=== PATIENT | male | born 1950 | race Caucasian/White ===

== ENCOUNTER 2016-10-01 17:24 | Inpatient (IN) ==
[2016-10-01] MEDS ORDERED: IOPAMIDOL 100 ML BOTTLE IV ONE ×2 (17:25)
--- NOTE | 2016-10-01 17:42 | Emergency Department Note ---
General Adult HPI - General Chief complaint: Recheck/Abnormal Lab/Rx Stated complaint: High white count Time Seen by Provider: 10/01/16 17:34 Source: patient Mode of arrival: wheelchair - History of Present Illness HPI Narrative: This patient has had rectal pain and swelling for the last few days since last Saturday. The [facility] today after waking up with increased pain and swelling and coughing and him then having the drainage of blood and pus. He is exam of the [facility] with anoscopy and pus was visible. Surgeon has been consulted and is requesting a CT scan and admission. The patient has already gotten Unasyn and Flagyl. Onset (ago): day(s) - Related Data Home Medications Medication Instructions Recorded Confirmed Amoxicillin/Potassium Clav 875 mg PO Q12H 10/01/16 10/01/16 [Augmentin] Docusate Sodium [Colace] 100 mg PO PRN PRN 10/01/16 10/01/16 Ibuprofen [Ibuprofen Ib] 600 mg PO Q4HP PRN 10/01/16 10/01/16 Tamsulosin [Flomax] 0.4 mg PO ONCE 10/01/16 10/01/16 metroNIDAZOLE [Metronidazole] 500 mg PO QIDP 10/01/16 10/01/16 traMADol [Ultram] 50 mg PO Q4 PRN 10/01/16 10/01/16 Allergies Allergy/AdvReac Type Severity Reaction Status Date / Time No Known Drug Allergies Allergy Unverified 10/01/16 17:30 Review of Systems Constitutional: Denies: fever, chills Eyes: Denies: eye pain ENT ED: Denies: ear pain Cardiovascular: Denies: chest pain Respiratory: Denies: cough Gastrointestinal: Denies: abdominal pain, nausea Genitourinary: Denies: urgency Musculoskeletal: Denies: back pain Integumentary: Denies: rash Neurological: Denies: headache Past Medical History - Past Medical History Medical history: Reports: hyperlipidemia Surgical history ED: Reports: appendectomy Physical Exam - General Limitations: no limitations General appearance: alert, in no apparent distress - Head Head exam: atraumatic - Eye Eye exam: Present: normal appearance - ENT ENT exam: normal exam - Neck Neck exam: Present: normal inspection - Chest Chest inspection: Present: normal inspection - Respiratory Respiratory exam: Present: normal lung sounds bilaterally - Cardiovascular Cardiovascular exam: Present: regular rate, normal rhythm, normal heart sounds - Abdominal Exam Abdominal exam: Present: soft. Absent: distention, tenderness - Neurological Exam Neurological exam: Present: alert - Psychiatric Psychiatric exam: Present: normal affect - Skin Skin exam: Present: warm, dry Course Vital Signs Temperature 98.6 F 10/01/16 17:25 Pulse Rate 95 H 10/01/16 17:25 Respiratory Rate 20 10/01/16 17:25 Blood Pressure 106/71 10/01/16 17:25 Pulse Oximetry (%) 95 10/01/16 17:25 Temperature 98.6 F 10/01/16 17:25 Pulse Rate 87 10/01/16 18:31 Respiratory Rate 20 10/01/16 17:25 Blood Pressure 117/83 10/01/16 18:31 Pulse Oximetry (%) 96 10/01/16 18:31 Medical Decision Making - MDM Narrative Medical decision making narrative: CT scan did not show a drainable abscess but did show inflammation around the anal area. Discussed the case with Dr. Miller the general surgeon and the patient will be admitted to the hospital on IV Zosyn - Lab Data Lab results reviewed: Yes I reviewed the patient's lab results. Result diagrams: 10/01/16 18:00 10/01/16 18:00 Lab Results 10/01/16 10/01/16 10/01/16 Range/Units 18:00 18:00 18:32 WBC 14.1 H (4.5-11.0) K/mcL RBC 4.17 L (4.50-5.90) M/mcL Hgb 13.5 (13.5-16.5) g/dL Hct 39.8 L (41.0-55.0) % MCV 95.6 (80.0-100.0) fL MCH 32.4 (26.0-34.0) pg MCHC 33.8 (31.0-36.0) g/dL RDW 12.9 (11.5-14.5) % Plt Count 299 (140-440) K/mcL MPV 7.9 (7.4-10.4) fL Gran % 77.9 (38.0-78.0) % Lymph % (Auto) 11.4 L (15.5-49.0) % [place] % (Auto) 9.8 (1.0-12.0) % Eos % (Auto) 0.6 (0.0-7.0) % Baso % (Auto) 0.3 (0.0-2.0) % Gran # 11.0 H (1.8-8.0) K/mcL Lymph # 1.6 (1.5-4.8) K/mcL [place] # 1.4 H (0.1-0.9) K/mcL Eos # 0.1 (0.0-0.7) K/mcL Baso # 0 (0.0-0.3) K/mcL VBG Lactic Acid 0.9 (0.5-2.2) mmol/L Sodium 137 (133-145) mmol/L Potassium 4.6 (3.3-5.1) mmol/L Chloride 98 (96-108) mmol/L Carbon Dioxide 24 (22-30) mmol/L Anion Gap 15.0 (8-16) BUN 22 (8-23) mg/dl Creatinine 1.3 H (0.7-1.2) mg/dl GFR Calculation 56 Glucose 127 H (70-105) mg/dL Calcium 9.0 (8.6-10.4) mg/dl Total Bilirubin 0.2 (0.0-1.0) mg/dL AST 19 (0-37) U/l ALT 14 (0-40) U/l Alkaline Phosphatase 79 (39-117) U/L Total Protein 7.0 (5.9-8.4) gm/dL Albumin 3.3 (3.2-5.2) gm/dL Globulin 3.7 (2.2-3.7) gm/dL Albumin/Globulin Ratio 0.9 L (1.0-2.3) - Radiology Data Radiology results reviewed: Yes I reviewed the patient's radiology results. Disposition Clinical Impression: Alice-rectal abscess Disposition: Xfer As Inpt ([facility]) Condition: Good Referrals: Isis Hyde ARNP [Primary Care Provider] - Time of Disposition: 19:16
[2016-10-01 18:30] LABS: Basophils # (Auto) 0 K/mcL (0.0-0.3); Basophils % (Auto) 0.3 % (0.0-2.0); Eosinophils # (Auto) 0.1 K/mcL (0.0-0.7); Eosinophils % (Auto) 0.6 % (0.0-7.0); Granulocytes % (Auto) 77.9 % (38.0-78.0); Lymphocytes # (Auto) 1.6 K/mcL (1.5-4.8); Lymphocytes % (Auto) 11.4 % (15.5-49.0); Mean Cell Volume 95.6 fL (80.0-100.0); Mean Corpuscular HGB Conc 33.8 g/dL (31.0-36.0); Mean Corpuscular Hemoglobin 32.4 pg (26.0-34.0); Monocytes # (Auto) 1.4 K/mcL (0.1-0.9); Monocytes % (Auto) 9.8 % (1.0-12.0); Platelet Count 299 K/mcL (140-440); RBC 4.17 M/mcL (4.50-5.90); Red Cell Distribution Width 12.9 % (11.5-14.5)
[2016-10-01 18:51] LABS: ALT/SGPT 14 U/l (0-40); Albumin 3.3 gm/dL (3.2-5.2); Albumin/Globulin Ratio 0.9 (1.0-2.3); Alkaline Phosphatase 79 U/L (39-117); Blood Urea Nitrogen 22 mg/dl (8-23)
[2016-10-01] MEDS ORDERED: ONDANSETRON 4 MG/2 ML VIAL IV PRN (19:16)
[2016-10-01] MEDS: PIPERACILLIN SODIUM/TAZOBACTAM 3.375 GM in DEXTROSE 5% IN WATER 50 ML IV SCH (19:49)
[2016-10-01] MEDS: 0.9 % SODIUM CHLORIDE 1,000 ML IV SCH (20:22)
[2016-10-02] MEDS: 0.9 % SODIUM CHLORIDE 1,000 ML IV SCH ×3 (03:05→17:54)
[2016-10-02] MEDS: PIPERACILLIN SODIUM/TAZOBACTAM 3.375 GM in DEXTROSE 5% IN WATER 50 ML IV SCH ×4 (03:08→22:35)
[2016-10-02] MEDS ORDERED: PIPERACILLIN SODIUM/TAZOBACTAM 3.375 GM VIAL IV ONE (03:11)
--- NOTE | 2016-10-02 07:50 | Cat Scan Report ---
CLINICAL INFORMATION: Reason for Exam:per-rectal abscess COMPARISON: None. TECHNIQUE: Following injection of intravenous contrast the patient was scanned during the portal venous phase from the diaphragm through the symphysis pubis. Sagittal and coronal reformats were created.. FINDINGS: There is mild soft tissue thickening with stranding of the adjacent fat at the level of the anus. There is asymmetric thickening of the levator ani muscle on the left side near the anus. No abscess is identified. There is no evidence of bowel obstruction. There are numerous diverticula in the sigmoid colon but without evidence of acute diverticulitis. The prostate is moderately enlarged and protrudes into the base of the bladder. Bladder otherwise appears normal. The liver, spleen pancreas, gallbladder and adrenals and right kidney are normal. There are couple small parapelvic cysts left kidney. The left kidney is otherwise normal. There is a moderate amount calcified plaque in the aorta and iliac arteries with mild ectasia of the distal abdominal aorta. No abscess, mass, adenopathy or ascites are present within the abdomen or pelvis. 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 Small broad-based bulge is present at that level. There is also a small broad-based bulge at L4-5 and mild arthritis in the facets. IMPRESSION: Inflammation around the anus and the adjacent left-sided levator ani muscle No evidence of abscess Dr. Mackey was called with results Interpreted and Authenticated by: Kael Acosta 10/02/16
[2016-10-02] MEDS ORDERED: traMADol 50 MG TABLET PO PRN (12:10)
[2016-10-02 12:50] LABS: Basophils # (Auto) 0 K/mcL (0.0-0.3); Basophils % (Auto) 0.4 % (0.0-2.0); Eosinophils # (Auto) 0.1 K/mcL (0.0-0.7); Eosinophils % (Auto) 1.4 % (0.0-7.0); Lymphocytes # (Auto) 1.7 K/mcL (1.5-4.8); Mean Cell Volume 96.2 fL (80.0-100.0); Mean Corpuscular HGB Conc 33.3 g/dL (31.0-36.0); Mean Corpuscular Hemoglobin 32.1 pg (26.0-34.0); Monocytes # (Auto) 0.9 K/mcL (0.1-0.9); Monocytes % (Auto) 10.2 % (1.0-12.0); Platelet Count 323 K/mcL (140-440); RBC 4.28 M/mcL (4.50-5.90)
[2016-10-02 13:09] LABS: ALT/SGPT 15 U/l (0-40); Albumin 3.7 gm/dL (3.2-5.2); Albumin/Globulin Ratio 1.2 (1.0-2.3); Alkaline Phosphatase 80 U/L (39-117); Bilirubin,Direct < 0.2 mg/dL (0.0-0.3); Blood Urea Nitrogen 16 mg/dl (8-23); Gamma Glutamyl Transpeptidase 32 U/L (8-61); Magnesium 2.6 mg/dL (1.6-2.5)
[2016-10-02] MEDS: TAMSULOSIN 0.4 MG CAPSULE PO SCH (13:38)
[2016-10-02] MEDS: ALPRAZolam 0.5 MG TABLET PO PRN (14:40)
--- NOTE | 2016-10-02 15:23 | General Surg History&Physical ---
History of Present Illness Patient information: Note initiated : 10/02/16 at 3:09 pm Service Date, if different from initiated Date: [] Patient: Javed Rizo 66 y/o M admitted on 10/01/16 for High White Count/Alice- Rectal Abscess. Chief Complaint: [] HPI: Mr. Rizo is a 66 year old male with a seven-day history of severe perianal pain. He presented to the [facility] on 27 September with a 2 day history of severe pain and swelling of the per. Vital signs were stable with blood pressure 130/79. Exam was felt to show enlarged erythematous hemorrhoids and he was treated with Proctocort and viscous lidocaine to the area and jose. His pain continued and he represented on estating that the pain was much worse. He states that he had a popping sensation in the anal area while sitting and he drained about a cup size amount of pus and blood in his chair. At the time of evaluation he was feeling weak and shaky his blood pressure was down to 97 and his pulse was 102. Temperature was 97 3. When evaluated he was found to have ulceration and pusin his rectal vault. He was started on IV antibiotics including zosyn and Flagyl. Blood was drawn and put his blood return and it was noted that his white blood count 23,000. With the extreme leukocytosis the significant drop in his blood pressure from 137-90 and the tachycardia with dizzy feelingit was felt that he was potentially septic and he was referred to our emergency room for further treatment. A CT of the abdomen and pelvis was done and was interpreted as unremarkable however however on my review there is a fistulous tract in the anterior perirectal space with gas that extends up to the pelvic floor. There is also a thin area of scarring that extends to the perianal skin. It was felt that the patient has severe perirectal inflammatory disease with recent rupture of a large abscess. His white blood count has dropped from 23,000-14,000 and his blood pressure is now stable. It is felt that he will need to have close monitoring. Since the abscess was decompressed, he probably will not need operative decompression. He will have daily physical exam and a decision will be made based on his clinical presentation. Review of Systems All systems PM: reviewed and no additional remarkable complaints except as stated Past History Past medical history: bronchitis Past surgical history: appendectomy Past social history: 1 pack per day smoker Daily wine use Denies drug use Medications and Allergies Home Medications Medication Instructions Recorded Confirmed Type Amoxicillin/Potassium Clav 875 mg PO Q12H 10/01/16 10/01/16 History [Augmentin] Docusate Sodium [Colace] 100 mg PO PRN PRN 10/01/16 10/01/16 History Ibuprofen [Ibuprofen Ib] 600 mg PO Q4HP PRN 10/01/16 10/01/16 History Tamsulosin [Flomax] 0.4 mg PO ONCE 10/01/16 10/01/16 History metroNIDAZOLE [Metronidazole] 500 mg PO QIDP 10/01/16 10/01/16 History traMADol [Ultram] 50 mg PO Q4 PRN 10/01/16 10/01/16 History Allergies Allergy/AdvReac Type Severity Reaction Status Date / Time No Known Drug Allergies Allergy Unverified 10/01/16 17:30 Exam Temp Pulse Resp BP Pulse Ox 98.3 F 84 12 131/86 96 10/02/16 12:00 10/02/16 03:14 10/02/16 12:00 10/02/16 12:00 10/02/16 12:00 - General physical appearance well developed, well nourished, no distress - Eyes PERRL, normal ocular movement - ENT normal pinna, normal nares, normal mucosa, no hearing loss, no congestion - Head Head exam IM: Present: atraumatic, normocephalic - Neck no masses, no bruits, trachea midline, no lymphadectomy, no venous distension - Cardiovascular Cardiovascular exam IM: Present: normal rate and rhythm - Respiratory normal expansion, normal respiratory effort, clear to percussion, clear to auscultation - Abdomen Abdomen: Present: soft, non tender, bowel sounds Hernia: Present: none - Genitourinary Present: normal penis with no external lesions - Rectum Rectum: Present: normal sphincter tone, other (enlarged inflamed anterior perianal hemorrhoidal tissue with soft cavity that extends into the anal canal with ulceration and pus that represents the area of abscess decompression) - Integumentary Present: no rash, no growths, no abnormal pigmentation - Neurologic Present: normal coordination, normal sensation - Musculoskeletal Present: normal gait, normal posture - Psychiatric Present: oriented to time, oriented to person, oriented to place, speech is normal, memory intact Assessment and Plan (1) Bacteremia continue with IV antibiotics and IV fluids Close follow-up of vitals and white blood count Status: Acute (2) Alice-rectal abscess ontinue IV antibiotics Status: Acute
[2016-10-02 16:10] LABS: Erythrocyte Sedimentation Rate 77 mm/hr (0-15)
[2016-10-02] MEDS: DOCUSATE SODIUM 100 MG CAPSULE PO PRN (19:38)
[2016-10-03] MEDS: 0.9 % SODIUM CHLORIDE 1,000 ML IV SCH ×4 (00:34→10:53)
[2016-10-03] MEDS: PIPERACILLIN SODIUM/TAZOBACTAM 3.375 GM in DEXTROSE 5% IN WATER 50 ML IV SCH ×3 (05:44→21:43)
[2016-10-03] MEDS: NICOTINE 21 MG PATCH TOPICAL SCH (10:01)
[2016-10-03] MEDS: TAMSULOSIN 0.4 MG CAPSULE PO SCH (12:13)
--- NOTE | 2016-10-03 13:28 | General Surgery Progress Note ---
Subjective Patient reports: feels better Narrative: Note initiated : 10/03/16 at 1:25 pm Service Date, if different from initiated Date: [] Patient: Javed Rizo 66 y/o M admitted on 10/01/16 for High White Count/Alice- Rectal Abscess. Chief Complaint: [patient feels much better. He feels stronger. He no longer has drainage per rectum and his pain is significantly improved. He does complain of mild shortness of breath which he relates to his IV fluid intake he does not have cough. He has a history of bronchitis and COPD from smoking.] Objective Temp Pulse Resp BP Pulse Ox 98.4 F 77 18 159/94 95 10/03/16 12:00 10/03/16 12:00 10/03/16 12:00 10/03/16 12:00 10/03/16 12:00 - Additional Data Intake & Output - Last 24 hours: Intake & Output 10/01/16 10/02/16 10/03/16 10/04/16 05:59 05:59 05:59 05:59 Intake Total 1100 / 1295 3390 / 3390 1720 / 1720 Balance 1100 / 1295 3390 / 3390 1720 / 1720 Weight 165 lb 8 oz 165 lb 165 lb - General physical appearance well developed, well nourished, no distress, severe distress - Eyes PERRL - ENT normal pinna, normal nares, normal mucosa, no hearing loss, no congestion - Neck no venous distension - Respiratory clear to auscultation, other (no rales rhonchi or) - Cardiovascular Cardiovascular exam: Present: normal rate and rhythm, RRR, +S1, +S2. Absent: JVD - Abdomen soft, non tender, bowel sounds, distended (soft nondistended with good active bowel soundsno tenderness) - Rectum normal sphincter tone, no bleeding, other (perianal swelling with prominentedema of the anterior hemorrhoidal group No area of fluctuance noted.) - Integumentary no rash, no growths, no abnormal pigmentation - Neurologic normal coordination, normal sensation - Musculoskeletal normal gait, normal posture - Psychiatric oriented to time, oriented to person, oriented to place, speech is normal, memory intact - Labs 10/02/16 12:22 10/02/16 12:22 Assessment and Plan (1) Bacteremia Status: Acute Current Visit: Yes (2) Alice-rectal abscess Status: Acute Assessment and plan: continue IV antibiotics Saline lock IV Current Visit: Yes - Time Spent With Patient Total time spent is greater than 50% in coordination of care (as documented) at patient's floor/unit and/or counseling patient:
[2016-10-03] MEDS ORDERED: FUROSEMIDE 20 MG/2 ML VIAL IV ONE (13:30)
[2016-10-03] MEDS: DOCUSATE SODIUM 100 MG CAPSULE PO PRN (14:20)
[2016-10-03] MEDS: ALPRAZolam 0.5 MG TABLET PO PRN ×2 (16:11→18:15)
[2016-10-04] MEDS: PIPERACILLIN SODIUM/TAZOBACTAM 3.375 GM in DEXTROSE 5% IN WATER 50 ML IV SCH (05:12)
[2016-10-04 05:53] LABS: Basophils # (Auto) 0 K/mcL (0.0-0.3); Basophils % (Auto) 0.4 % (0.0-2.0); Eosinophils # (Auto) 0.3 K/mcL (0.0-0.7); Eosinophils % (Auto) 3.2 % (0.0-7.0); Granulocytes % (Auto) 61.8 % (38.0-78.0); Lymphocytes % (Auto) 24.7 % (15.5-49.0); Mean Cell Volume 95.4 fL (80.0-100.0); Mean Corpuscular HGB Conc 34.1 g/dL (31.0-36.0); Mean Corpuscular Hemoglobin 32.5 pg (26.0-34.0); Monocytes # (Auto) 0.8 K/mcL (0.1-0.9); Monocytes % (Auto) 9.9 % (1.0-12.0); Platelet Count 325 K/mcL (140-440); RBC 4.22 M/mcL (4.50-5.90); Red Cell Distribution Width 12.4 % (11.5-14.5)
[2016-10-04] MEDS: NICOTINE 21 MG PATCH TOPICAL SCH (10:21)
--- NOTE | 2016-10-04 12:18 | Discharge Summary ---
Providers - Providers Patient information: Note initiated : 10/04/16 at 12:14 pm Service Date, if different from initiated Date: [] Patient: Javed Rizo 66 y/o M admitted on 10/01/16 for High White Count/Alice- Rectal Abscess. Chief Complaint: [] Date of admission: 10/01/16 Discharge date: 10/04/16 Attending physician: Carin Miller Hospitalization Hospital course: 66-year-old male who was transferred from [facility] for evaluation of a perirectal abscess. The patient had about a 6 day history of alice-anal swelling and was seen in the local facility and treated for hemorrhoids initially. He was reevaluated 3 days later and started on antibiotics. He had labs drawn which eventually showed that he had a 23,000 white count. The patient also had associated dizziness tachycardia and hypotension with systolic blood pressure in the 90s. He had spontaneous rupture of a large abscess with drainage of about a cup of pus from the anal area prior to being transferred to this facility. When he arrived here he was improved but still symptomatic. He was admitted and started on IV antibiotics and monitored. He has done well and his white blood count has returned to normal. Vital signs are stable and the perianal edema and induration is significantly improved. He is stable for discharge. He will be treated with Levaquin and Flagyl for 2 weeks and will be followed up in the office in about 10 days. Discharge diagnosis: Perirectal abscess Secondary discharge diagnosis: Acute septicemia with leukocytosis, tachycardia, hypotension and weakness, Reason for admission: Perirectal abscess and septicemia Procedures: None Pertinent studies/significant findings: CT of the abdomen and pelvis Complications: None Exam Temp Pulse Resp BP Pulse Ox 97.8 F 87 18 135/89 95 10/04/16 11:51 10/04/16 11:51 10/04/16 11:51 10/04/16 11:51 10/04/16 11:51 - General physical appearance well developed, well nourished, no distress - Eyes PERRL, normal ocular movement - ENT normal pinna, normal nares, normal mucosa, no hearing loss, no congestion - Head Head exam IM: Present: atraumatic, normocephalic - Neck no masses, no bruits, trachea midline, no lymphadectomy, no venous distension - Cardiovascular Cardiovascular exam IM: Present: normal rate and rhythm - Respiratory normal expansion, normal respiratory effort, clear to percussion, clear to auscultation - Abdomen Abdomen: Present: soft, non tender, bowel sounds Hernia: Present: none - Genitourinary Present: normal penis with no external lesions - Rectum Rectum: Present: normal sphincter tone, no tenderness, no masses, no bleeding, other (Indurated thickened anterior hemorrhoids; draining fistulous tract and anterior perirectal space) Hemorrhoids: Present: moderate - Integumentary Present: no rash, no growths, no abnormal pigmentation - Neurologic Present: normal coordination, normal sensation - Musculoskeletal Present: normal gait, normal posture - Psychiatric Present: oriented to time, oriented to person, oriented to place, speech is normal, memory intact Discharge Plan - Patient/Caregiver Discharge Instructions Activity: increase activity as tolerated Diet: Regular Diet Additional Instructions: Patient will continue with the antibiotics that he was given prior to transfer to this facility. These antibiotics are Augmentin and Flagyl. - Follow up Plan Follow up with: Isis Hyde ARNP [Primary Care Provider] - Disposition: Home, Self-Care Prognosis: Good Rehab Potential: Good I certify that the patient requires SNF services.: No Overall status at discharge: patient is not back to baseline Pending Studies Resuscitation Status Full Code Diet Regular Diet Start SatOct 02 Breakfast Alprazolam (Xanax) 0.5 mg PO TIDP PRN PRN Reason: Anxiety Last Admin: 10/03/16 18:15 Dose: 0.5 mg Admin: 10/02/16 14:40 Dose: 0.5 mg Docusate Sodium (Colace) 100 mg PO PRN PRN PRN Reason: stool softener Last Admin: 10/03/16 14:20 Dose: 100 mg Admin: 10/02/16 19:38 Dose: 100 mg Piperacillin Sod/Tazobactam (Sod 3.375 gm/ Dextrose) 50 mls @ 100 mls/hr IV Q8H [facility] Last Infusion: 10/04/16 06:00 Dose: 100 mls/hr Admin: 10/04/16 05:12 Dose: 100 mls/hr Infusion: 10/03/16 22:13 Dose: 100 mls/hr Admin: 10/03/16 21:43 Dose: 100 mls/hr Infusion: 10/03/16 14:01 Dose: 100 mls/hr Admin: 10/03/16 13:31 Dose: 100 mls/hr Infusion: 10/03/16 06:14 Dose: 100 mls/hr Admin: 10/03/16 05:44 Dose: 100 mls/hr Infusion: 10/02/16 23:05 Dose: 100 mls/hr Admin: 10/02/16 22:35 Dose: 100 mls/hr Infusion: 10/02/16 14:08 Dose: 100 mls/hr Admin: 10/02/16 13:38 Dose: 100 mls/hr Infusion: 10/02/16 03:45 Dose: 100 mls/hr Admin: 10/02/16 03:15 Dose: 100 mls/hr Admin: 10/02/16 03:08 Dose: 100 mls/hr Infusion: 10/01/16 20:18 Dose: 0 mls/hr Infusion: 10/01/16 20:17 Dose: 0 mls/hr Admin: 10/01/16 19:49 Dose: 100 mls/hr Nicotine (Nicoderm) 21 mg TOPICAL DAILY@1000 JEFFREY Last Admin: 10/04/16 10:21 Dose: Admin: 10/03/16 10:01 Dose: Ondansetron HCl (Zofran) 4 mg IV Q4HP PRN PRN Reason: Nausea And Vomiting Last Admin: 10/01/16 19:32 Dose: 4 mg Tamsulosin HCl (Flomax) 0.4 mg PO ONCE JEFFREY Last Admin: 10/03/16 12:13 Dose: Admin: 10/02/16 13:38 Dose: 0.4 mg Tramadol HCl (Ultram) 50 mg PO Q4HP PRN PRN Reason: Pain Last Admin: 10/02/16 19:38 Dose: 50 mg Shift Summary 10/04/16 04:15 Shift Summary by Christiano Riojas Patient rested well this noc - he has denied pain, nausea, or other concerns this shift. S.L. patent to RT A/C - Q 8hr IV Zosyn. Up AMB to & from BR (I) - voiding QS per toilet. VS- WNL - on R.A.. PRN PO Xanax for anxiety given last @ 1809. Initialized on 10/04/16 04:15 - END OF NOTE
== END 2016-10-04 13:00 | disposition home or self-care (01) | DRG 872 ==
LOC: ED 17:24 → MEDSUR 21:25
PROVIDERS: ADMIT Family Medicine Adult Medicine; ATTEND Family Medicine Adult Medicine